=== PATIENT | female | born 1940 | race Caucasian/White ===

== ENCOUNTER 2022-03-18 19:00 | Observation (INO) ==
[2022-03-18] MEDS ORDERED: Iohexol 350 (CONTRAST) 500 ML MDV IV ONE (19:10)
[2022-03-18 19:15] LABS: ABS Eosinophils 0.1 10^3/ul (0-0.6); ABS Lymphocytes 1.6 10^3/ul (1.0-4.8); ABS Monocytes 0.4 10^3/ul (0-0.8); ABS Neutrophils 2.3 10^3/ul (1.5-7.7); Eosinophil % 2.4 %; Hematocrit 41 % (35-47); Hemoglobin 13.6 g/dL (12.0-16.0); Lymphocyte % 35.7 %; Mean Corpuscular HGB Conc 33 g/dL (31-36); Mean Corpuscular Hemoglobin 31 pg (27-31); Mean Corpuscular Volume 94 fL (80-97); Mean Platelet Volume 6.1 fL (7.4-10.4); Nucleated Red Blood Cells % 0.1; Platelet Count 249 10^3/uL (150-450); Red Cell Distribution Width 15 % (10-15); White Blood Count 4.5 10^3/uL (3.5-10.8)
[2022-03-18 19:22] LABS: Activated Partial Thrombo Time 30.8 seconds (26.0-38.0); INR 0.98 (0.88-1.18)
[2022-03-18 19:28] LABS: Albumin 4.2 g/dL (3.2-5.2); Calcium 9.2 mg/dL (8.6-10.3); Potassium 3.8 mmol/L (3.5-5.0); Total Bilirubin 0.5 mg/dL (0.2-1.0)
[2022-03-18 19:34] LABS: Albumin/Globulin Ratio 1.6 (1-3); Globulin 2.7 g/dL (2-4); HDL Cholesterol 110.1 mg/dL; Total Protein 6.9 g/dL (6.4-8.9); eGFR CKD-EPI 85.9 (>60)
[2022-03-18 19:59] LABS: Urine Appearance Cloudy; Urine Bilirubin Negative (Negative); Urine Blood 2+ (Negative); Urine Color Yellow; Urine Glucose Negative (Negative); Urine Ketones Negative (Negative); Urine Nitrite Positive (Negative); Urine Protein Negative (Negative); Urine Specific Gravity 1.018 (1.002-1.030); Urine Urobilinogen Negative (Negative)
[2022-03-18 20:11] LABS: Urine Bacteria 1+ (Absent); Urine Red Blood Cell 2+(6-10/hpf) (Absent); Urine Squamous Epithelial Cell Present (Absent); Urine White Blood Cell 3+(>20/hpf) (Absent)
[2022-03-18] MEDS ORDERED: Albuterol HFA INHALER 8 gm MDI INH PRN (20:57)
[2022-03-18] MEDS ORDERED: Labetalol IV 5 MG/ML 20 ml VIAL IV PUSH PRN (21:04)
[2022-03-18] MEDS: Heparin 5000 UNITS/ML 1 mL VIAL SUBCUT SCH (21:54)
[2022-03-19] MEDS ORDERED: cefTRIAXone 1 gm/50 mL D5W 1 GM/50 ML BAG IV SCH (01:00)
[2022-03-19] MEDS: Heparin 5000 UNITS/ML 1 mL VIAL SUBCUT SCH ×2 (06:34→14:07)
[2022-03-19 08:46] LABS: Calcium 9.1 mg/dL (8.6-10.3); Potassium 3.8 mmol/L (3.5-5.0); eGFR CKD-EPI 91.4 (>60)
[2022-03-19] MEDS ORDERED: Tiotropium Brom/Olodaterol MDI INH SCH (09:00)
[2022-03-19 11:49] VITALS: BP 131/76
[2022-03-19] MEDS ORDERED: CLOPIDOGREL BISULFATE 75 MG PO SCH (13:00)
== END 2022-03-19 14:30 | disposition home or self-care (01) ==
LOC: EDSEX → ED 19:00 → EDHOLD 20:50 → INTOOBSV 20:50 → SUATTDRO 20:50 → EDHOLD 21:48 → MEDTELE 22:16
PROVIDERS: ADMIT Student in an Organized Health Care Education/Training Program; ATTEND Internal Medicine